=== PATIENT | female | born 1995 | race Caucasian/White ===

== ENCOUNTER 2021-07-31 18:19 | Emergency (ER) | payer OTHER, SELFPAY ==
--- NOTE | 2021-07-31 | ECG_ITS ---
Test Reason : DIZZINESS Blood Pressure : / mmHG Vent. Rate : 072 BPM Atrial Rate : 072 BPM P-R Int : 144 ms QRS Dur : 072 ms QT Int : 374 ms P-R-T Axes : 057 035 -20 degrees QTc Int : 409 ms Normal sinus rhythm Nonspecific T wave abnormality Abnormal ECG No previous ECGs available Referred By: Generic ED Physician Electronically Signed By:Jeffry Lopez
[2021-07-31 18:52] VITALS: BP 127/67; PULSE 81; RESP 19; TEMP 36.9; O2SAT 100; BMI 41.0
[2021-07-31 20:07] LABS: MANUAL DIFF FLAG NO
[2021-07-31 20:28] LABS: Alanine Aminotransferase 25 U/L (0-31); Albumin Level 4.1 g/dL (3.5-5.0); Alkaline Phosphatase 73 U/L (39-117); Anion Gap 12 (12-20); Aspartate Amino Transferase 27 U/L (5-31); Bilirubin Total 0.8 mg/dL (0.0-1.0); Blood Urea Nitrogen 12 mg/dL (9-16); Calcium 8.5 mg/dL (8.4-10.2); Carbon Dioxide 23 mmol/L (22-29); Chloride 108 mmol/L (96-108); Creatinine Clr Calc Pharmacy 145.3; Estimated Glomerular Filt Rate > 60; Glucose Random 103 mg/dL (60-115); Lipase 33 U/L (8-78); Potassium 4.6 mmol/L (3.3-5.1); Sodium 138 mmol/L (135-145); Total Protein 7.2 g/dL (6.5-8.0)
[2021-07-31 20:50] LABS: Basophils Percent Auto 0.5 % (0-2); Eosinophils Percent Auto 0.2 % (0-4); Hematocrit 32.7 % (37.0-47.0); Hemoglobin 9.6 g/dl (12.0-16.0); Imm Gran Abs Auto 0.03 X10*3/uL (0.00-0.03); Imm Gran Pct Auto 0.7 % (0.0-0.4); Lymphocytes Absolute Auto 0.5 X10*3/uL (1.2-4.9); Lymphocytes Percent Auto 11.8 % (20-40); Mean Corpuscular HGB Conc 29.4 g/dl (31.0-35.0); Mean Corpuscular Volume 81.8 fL (80.0-98.0); Mean Platelet Volume 11.9 fL (9.4-12.3); Monocytes Absolute Auto 0.3 X10*3/uL (0.1-1.2); Monocytes Percent Auto 7.6 % (2-11); Neutrophils Absolute Auto 3.4 x10*3/uL (2.0-8.3); Neutrophils Percent Auto 79.2 % (45-73); Platelet Count 326 X10*3/uL (160-400); Red Cell Distribution Width 23.1 % (11.0-16.0); White Blood Count 4.2 X10*3/uL (4.8-10.8)
[2021-08-01 00:25] VITALS: BP 103/58; PULSE 66
[2021-08-01 00:27] VITALS: BP 107/56; PULSE 80
[2021-08-01 00:28] VITALS: BP 104/59; PULSE 80
--- NOTE | 2021-08-01 00:28 | ED_ITS ---
HPI - Dizziness General Chief Complaint: Dizziness Stated Complaint: dizziness/headaches/body aches/nausea Time Seen by Provider: 07/31/21 23:50 Source: patient and court interpreter Mode of arrival: ambulatory History of Present Illness HPI Narrative: 26-year-old female with chronic history of anemia as well as menorrhagia and has currently been evaluated by both her primary care provider and 1 year ago by a design studio consultant. She denies any imaging studies and is currently taking on iron. Patient states that 2 weeks ago her hemoglobin was 7. She presents today for onset of dizziness while at work with some chills but patient states that the chills are very common for her to have during her. Which she states she is on her 2nd day of her menstrual cycle and changes her pad 4 times a day. She reports fatigue but otherwise denies shortness of breath, palpitations and has had some mild nausea with vomiting and diarrhea. Related Data Allergies Allergy/AdvReac Type Severity Reaction Status Date / Time No Known Allergies Allergy Verified 07/31/21 18:55 [No Known Allergies*] Review of Systems Review of Systems: Pertinent positives and negatives as stated in HPI 10 point review of systems is otherwise negative. PMFSH Past Medical History Source: nursing notes reviewed Medical History Anemia Asthma Diabetes Social History Social History Advance Directives: No Physical Exam Vital Signs: Vital Signs: Last Vital Signs Temp 98.5 F 07/31/21 18:52 Pulse 59 08/01/21 02:05 Resp 16 08/01/21 02:05 BP 95/45 L 08/01/21 02:05 Pulse Ox 98 08/01/21 02:05 BMI result Body Mass Index 41.0 VITAL SIGNS: Reviewed. GENERAL: Well developed, well nourished, in no acute distress. HEAD: Normocephalic/atraumatic EYES: PERRLA, EOMI, pale conjunctiva EARS: Ext canals without abnormality OROPHARYNX: no oral lesions noted, posterior pharynx clear, mucosa is pink and moist NECK: Supple, no adenopathy LUNGS: Normal breath sounds, no tachypnea No adventitious sounds or accessory muscle use. SpO2<100> CARDIOVASCULAR: Regular rate and rhythm without noted murmurs, ABDOMEN: Soft, non-tender, non-distended with bowel sounds. MUSCULOSKELETAL: No tenderness, deformities, or effusions noted on gross inspection. EXTREMITIES: No cyanosis, clubbing or edema. SKIN: Inspection of the skin reveals no rashes, mild pallor NEUROLOGIC: Alert and oriented x 4. Strength and sensation to light touch were grossly intact x 4. Course Course Course Narrative: 26-year-old female with history and clinical presentation consistent with underlying chronic anemia related with her menstrual cycles and is currently on iron. There are no objective findings such as tachycardia or tachypnea to further suggest that patient's feelings of dizziness are related to the anemia and suspect that the onset gastroenteritis symptoms provided a stressor and patient now reports that she is feeling better. Orthostatics are negative, urine and hCG are negative. Review of all investigations otherwise negative for acute findings and on re-evaluation patient is feeling much better after having received IV fluids and she is stable for discharge to home with instructions follow-up with her design studio consultant in the morning. MDM - Dizziness Lab Data Result diagrams: 07/31/21 20:01 07/31/21 20:01 Labs: Lab Results 07/31/21 07/31/21 08/01/21 Range/Units 20:01 20:01 00:49 WBC 4.2 L (4.8-10.8) X10*3/uL RBC 4.00 L (4.20-5.50) X10*6/uL Hgb 9.6 L (12.0-16.0) g/dl Hct 32.7 L (37.0-47.0) % MCV 81.8 (80.0-98.0) fL MCH 24.0 L (27.0-33.0) pg MCHC 29.4 L (31.0-35.0) g/dl RDW 23.1 H (11.0-16.0) % Plt Count 326 (160-400) X10*3/uL MPV 11.9 (9.4-12.3) fL Immature Gran % (Auto) 0.7 H (0.0-0.4) % Neut % (Auto) 79.2 H (45-73) % Lymph % (Auto) 11.8 L (20-40) % Teller % (Auto) 7.6 (2-11) % Eos % (Auto) 0.2 (0-4) % Baso % (Auto) 0.5 (0-2) % Lymph # (Auto) 0.5 L (1.2-4.9) X10*3/uL Teller # (Auto) 0.3 (0.1-1.2) X10*3/uL Eos # (Auto) 0.0 (0.0-0.4) X10*3/uL Baso # (Auto) 0.0 (0.0-0.2) X10*3/uL Abs Immat Gran (auto) 0.03 (0.00-0.03) X10*3/uL Absolute Neuts (auto) 3.4 (2.0-8.3) x10*3/uL Absolute Nucleated RBC 0.000 (0.0-0.012) X10*3/uL Nucleated RBC % (auto) 0.0 (0.0-0.2) /100WBC Sodium 138 (135-145) mmol/L Potassium 4.6 (3.3-5.1) mmol/L Chloride 108 (96-108) mmol/L Carbon Dioxide 23 (22-29) mmol/L Anion Gap 12 (12-20) BUN 12 (9-16) mg/dL Creatinine 0.82 (0.5-1.4) mg/dL Estim Creat Clear Calc 145.3 Estimated GFR > 60 Random Glucose 103 (60-115) mg/dL Calcium 8.5 (8.4-10.2) mg/dL Total Bilirubin 0.8 (0.0-1.0) mg/dL AST 27 (5-31) U/L ALT 25 (0-31) U/L Alkaline Phosphatase 73 (39-117) U/L Total Protein 7.2 (6.5-8.0) g/dL Albumin 4.1 (3.5-5.0) g/dL Lipase 33 (8-78) U/L Beta HCG, Quant < 2 mIU/mL Urine Color DK YELLOW Urine Appearance CLOUDY Urine pH 6.0 (5.0-8.0) Ur Specific [place] >= 1.030 H (1.005-1.025) Urine Protein 2+ H (NEG-TRACE) MG/DL Urine Glucose (UA) NEG (NEG) MG/DL Urine Ketones NEG (NEG) MG/DL Urine Blood 3+ H (NEG) Urine Nitrite NEG (NEG) Ur Leukocyte Esterase NEG (NEG) Urine RBC 1-4 (0) /HPF Urine WBC 0-2 (0-4) /HPF Ur Squamous Epith Cells 2+ /LPF Urine Bacteria TRACE /LPF Granular Casts 0-2 /LPF Urine Mucus 3+ /LPF Urine Test (NEGATIVE) COVID-19 (JUANITA) (Negative) COVID-19 Clin Com Influenza Type A (TRISTAN) (Negative) Influenza Type B (TRISTAN) (Negative) Influenza A & B Note 08/01/21 08/01/21 08/01/21 Range/Units 00:49 02:16 02:16 WBC (4.8-10.8) X10*3/uL RBC (4.20-5.50) X10*6/uL Hgb (12.0-16.0) g/dl Hct (37.0-47.0) % MCV (80.0-98.0) fL MCH (27.0-33.0) pg MCHC (31.0-35.0) g/dl RDW (11.0-16.0) % Plt Count (160-400) X10*3/uL MPV (9.4-12.3) fL Immature Gran % (Auto) (0.0-0.4) % Neut % (Auto) (45-73) % Lymph % (Auto) (20-40) % Teller % (Auto) (2-11) % Eos % (Auto) (0-4) % Baso % (Auto) (0-2) % Lymph # (Auto) (1.2-4.9) X10*3/uL Teller # (Auto) (0.1-1.2) X10*3/uL Eos # (Auto) (0.0-0.4) X10*3/uL Baso # (Auto) (0.0-0.2) X10*3/uL Abs Immat Gran (auto) (0.00-0.03) X10*3/uL Absolute Neuts (auto) (2.0-8.3) x10*3/uL Absolute Nucleated RBC (0.0-0.012) X10*3/uL Nucleated RBC % (auto) (0.0-0.2) /100WBC Sodium (135-145) mmol/L Potassium (3.3-5.1) mmol/L Chloride (96-108) mmol/L Carbon Dioxide (22-29) mmol/L Anion Gap (12-20) BUN (9-16) mg/dL Creatinine (0.5-1.4) mg/dL Estim Creat Clear Calc Estimated GFR Random Glucose (60-115) mg/dL Calcium (8.4-10.2) mg/dL Total Bilirubin (0.0-1.0) mg/dL AST (5-31) U/L ALT (0-31) U/L Alkaline Phosphatase (39-117) U/L Total Protein (6.5-8.0) g/dL Albumin (3.5-5.0) g/dL Lipase (8-78) U/L Beta HCG, Quant mIU/mL Urine Color Urine Appearance Urine pH (5.0-8.0) Ur Specific [place] (1.005-1.025) Urine Protein (NEG-TRACE) MG/DL Urine Glucose (UA) (NEG) MG/DL Urine Ketones (NEG) MG/DL Urine Blood (NEG) Urine Nitrite (NEG) Ur Leukocyte Esterase (NEG) Urine RBC (0) /HPF Urine WBC (0-4) /HPF Ur Squamous Epith Cells /LPF Urine Bacteria /LPF Granular Casts /LPF Urine Mucus /LPF Urine Test NEGATIVE (NEGATIVE) COVID-19 (JUANITA) Negative (Negative) COVID-19 Clin Com See Note Influenza Type A (TRISTAN) Negative (Negative) Influenza Type B (TRISTAN) Negative (Negative) Influenza A & B Note See Note Discharge Plan Discharge Clinical Impression: Dizziness, Anemia, Gastroenteritis Patient Disposition: Home, Self-Care Instructions: Gastroenteritis (ED), Anemia (ED) Additional Instructions: 1. Reanudar todos los medicamentos caseros seg?n lo prescrito. Clymer incluye lucretia pastillas de mike. 2. Maritza un seguimiento con hernandez ginec?logo y/o hernandez proveedor de atenci?n primaria para analizar m?s a fondo las opciones para hernandez anemia. Regrese a la marina de emergencias si los s?ntomas empeoran. Print Language: Faroese
--- NOTE | 2021-08-01 00:30 | PC.NURSE ---
Breaker Hand, Mayur at bedside for assessment questions.
[2021-08-01 00:55] LABS: HCG Quantitative < 2 mIU/mL
[2021-08-01 00:58] LABS: Appearance Urine CLOUDY; Color Urine DK YELLOW; Glucose Urine UA NEG (NEG); Leukocyte Esterase Urine NEG (NEG); Nitrite Urine NEG (NEG); Specific Gravity - Urine >= 1.030 (1.005-1.025); UACC Culture Trigger NO; Urine Blood 3+ (NEG); Urine Ketones NEG (NEG); Urine Protein 2+ MG/DL (NEG-TRACE)
[2021-08-01 00:59] LABS: UPreg QC Valid YES; Urine Pregnancy NEGATIVE (NEGATIVE)
[2021-08-01 01:06] LABS: Bacteria Urine TRACE /LPF; Granular Casts Urine 0-2 /LPF; Mucus Urine 3+ /LPF; Squamous Epithelial Cell Urine 2+ /LPF; WBC Urine 0-2 /HPF (0-4)
[2021-08-01 02:05] VITALS: BP 95/45; PULSE 59; RESP 16; O2SAT 98
[2021-08-01 02:40] LABS: COVID-19 Test Negative (Negative); IDNOW Serial# 55D5AD1C; Influenza A Negative (Negative); Influenza B2 Negative (Negative)
[2021-08-01] MEDS: 0.9 % Sodium Chloride 1,000 ML 999 ML IV (02:47)
[2021-08-01] MEDS: Acetaminophen 325 MG TABLET 975 MG PO (02:47)
[2021-08-01 04:00] VITALS: BP 103/45; PULSE 96; RESP 18; TEMP 36.6; O2SAT 99
== END 2021-08-01 04:41 | disposition home or self-care (01) ==
PROVIDERS: Emergency Provider Student in an Organized Health Care Education/Training Program
DX: K52.9 Noninfective gastroenteritis and colitis, unspecified (principal); D64.9 Anemia, unspecified; R42 Dizziness and giddiness; R51.9 Headache, unspecified; M79.10 Myalgia, unspecified site; Z20.822 Contact with and (suspected) exposure to COVID-19; Z79.899 Other long term (current) drug therapy
CPT/HCPCS: 36415; 80053; 81001; 81025; 83690; 84702; 85025; 87502; 87635; 93005; 96361; 96374; 99284; 99285